=== PATIENT | female | born 1960 | race Two or more races ===

== ENCOUNTER 2022-03-16 09:57 | Day surgery (SDC) | payer MEDICARE ==
[2022-03-12 15:08] LABS: BASOPHILS % (AUTO) 0.5 % (0-1); EOSINOPHILS # (AUTO) 0.1 X10'3 (0-0.9); EOSINOPHILS % (AUTO) 2.4 % (0-6); LYMPHOCYTES # (AUTO) 2.3 X10'3 (1.1-4.8); LYMPHOCYTES % (AUTO) 40.5 % (21-51); MEAN CORPUSCULAR HEMOGLOBIN 30.9 PG (27.0-31.0); MEAN CORPUSCULAR HGB CONC 33.4 g/dL (33.0-36.5); MEAN CORPUSCULAR VOLUME 92.4 FL (78-98); MEAN PLATELET VOLUME 7.4 FL (7.4-10.4); MONOCYTES # (AUTO) 0.5 X10'3 (0-0.9); MONOCYTES % (AUTO) 8.9 % (2-12); NEUTROPHILS # (AUTO) 2.7 X10'3 (1.8-7.7); NEUTROPHILS % (AUTO) 47.7 % (42-75); PRE OP HEMATOCRIT 39.4 % (35.0-45.0); PRE OP HEMOGLOBIN 13.2 g/dL (12.0-16.0); PRE OP PLATELET COUNT 274 X10'3 (140-440); RED BLOOD COUNT 4.26 X10'6 (4.20-5.60); RED CELL DISTRIBUTION WIDTH 13.3 % (11.5-14.5)
[2022-03-12 15:49] LABS: ALBUMIN 3.8 G/DL (3.4-5.0); ALBUMIN/GLOBULIN RATIO 1.2 (1.1-1.5); ALKALINE PHOSPHATASE 64 IU/L (46-116); BLOOD UREA NITROGEN 12 MG/DL (7-18); CALCIUM 8.7 MG/DL (8.5-10.1); PRE OP ALT 19 U/L (30-65); PRE OP AST 23 U/L (10-37); PRE OP BILIRUB, TOTAL 0.2 MG/DL (0.0-1.0); PRE OP GLUCOSE 77 MG/DL (70-104); TOTAL CARBON DIOXIDE 29.9 MMOL/L (24-32); TOTAL PROTEIN 7.1 G/DL (6.4-8.2); eGFR > 90 ML/MIN
[2022-03-12 16:14] LABS: CHLORIDE 102 MMOL/L (99-107); PRE OP ANION GAP 6 (8-16); PRE OP POTASSIUM 3.5 MMOL/L (3.4-5.1); PRE OP SODIUM 138 MMOL/L (135-145)
[2022-03-16] VITALS (13 sets, daily range): BP systolic 138–175; BP diastolic 72–100
[~2022-03-16] VITALS: Ht 162.6 cm; Wt 52.2 kg
[~2022-03-16 09:57] MED LIST: ATOR40TA PO; CITA20TA PO; EMPA1TAB9 PO; HYDR-3973 PO; INDOCYANINE GREEN 25 MG/10 ML VIAL IV ONE; OLME5TAB29 PO; albuterol 2.5 MG/3 ML nebule NEB ONE; ceFAZolin inj. 2,000 MG in dextrose 5%-water 100 ML IV ONE; famotidine 20mg tablet PO ONE; ringers solution, lacted 1,000 ML IV SCH
--- NOTE | 2022-03-16 10:15 | NUR ---
PREPARED PT FOR SURGERY, DAUGHTER MANFRED AT BEDSIDE, PT INTERVIEWED IN [place], MANFRED AVAILABLE TO TRANSLATE IF NEEDED. SHE WAS NOT NEEDED. 20 G IV STARTED IN LEFT HAND WITHOUT DIFFICULTY. IC GREEN GIVEN SLOW IV PUSH, NO SIGNS OF REACTION. PT INSTRUCTED ON USE OF INCENTIVE SPIROMETRY. PT AND FAMILY VERBALIZED UNDERSTANDING OF HOW TO USE THE MACHINE. ABDOMEN WIPED DOWN BY [facility]. ANESTHESIA AND SURGEON AT BEDSIDE FOR PRESURGERY INTERVIEWS
[2022-03-16] MEDS ORDERED: LIDOcaine 1% 30ml preserv. free vial ONE (12:07)
[2022-03-16] MEDS ORDERED: BUPIVAcaine 0.5% inj/PF 30 ML ONE (12:07)
[2022-03-16] MEDS ORDERED: ondansetron/PF 4mg/2ml inj ONE (12:24)
[2022-03-16] MEDS ORDERED: sevoflurane 250ml liquid IH ONE (12:24)
[2022-03-16] MEDS ORDERED: fentaNYL/PF 50MCG/1 ML 2ML syringe ONE (12:30)
[2022-03-16] MEDS ORDERED: midazolam 1 mg/ML 2ml injection ONE (12:34)
[2022-03-16] MEDS ORDERED: dexamethasone sod phosphate 4mg/ml inj. ONE (12:42)
[2022-03-16] MEDS ORDERED: propofol inj 20 ML IV ONE (12:42)
[2022-03-16] MEDS ORDERED: rocuronium 10mg/ml inj IV ONE (12:42)
[2022-03-16] MEDS ORDERED: LIDOcaine 2% (20mg/ml) 5ml vial ONE (12:42)
[2022-03-16] MEDS ORDERED: ringers solution, lacted 1,000 ML IV SCH (12:45)
[2022-03-16] MEDS ORDERED: ondansetron/PF 4mg/2ml inj IV PRN (12:45)
[2022-03-16] MEDS ORDERED: morphine 2 MG/ML inj. syringe IV PRN (12:45)
[2022-03-16] MEDS ORDERED: morphine 4 MG/ML inj SYRINge IV PRN (12:45)
[2022-03-16] MEDS ORDERED: proCHLORperazine 10 MG/2 ml inj IV PRN (12:45)
[2022-03-16] MEDS ORDERED: meperidine/PF 25mg/ml syringe IV PRN ×3 (12:45)
[2022-03-16] MEDS ORDERED: BUPIVAcaine 0.5% inj/PF 30 ml vial IJ ONE (12:51)
[2022-03-16] MEDS ORDERED: acetaminophen 1,000mg/100ml IV 100 ML IV ONE (13:27)
[2022-03-16] MEDS ORDERED: sugammadex 200mg/2ml injection IV ONE (13:28)
[2022-03-16] MEDS ORDERED: glycopyrrolate 0.2mg/ml inj ONE (13:28)
[2022-03-16] MEDS ORDERED: neostigmine methylsulfate 1 MG/ML 10ml vial ONE (13:28)
--- NOTE | 2022-03-16 13:29 | NUR ---
Received from OR via , accompanied by Anesthesiologist AND OR NURSE and report given by Anesthesiolgist. PT IS QUITE DROWSY WITH ORAL AIRWAY IN PLACE; ABLE TO RESPOND TO VERBAL COMMANDS. DENIES PAIN OR DISCOMFORT. 4 LAP SITES WITH BANDAIDS; CDI. VSS Addendum: 03/16/22 at 1600 by Aparna Lozano RN Amended: Links added.
[2022-03-16] MEDS ORDERED: oxyCODONE/APAP 5-325mg tablet PO PRN (14:15)
--- NOTE | 2022-03-16 15:39 | NUR ---
I HAVE REVIEWED D/C INSTRUCTIONS WITH PATIENT AND THEY HAVE VERBALIZED UNDERSTANDING OF INSTRUCTIONS. PATIENT D/C HOME WITH ALL BELONGINGS AND FAMILY GAVE TRANSPORT Addendum: 03/16/22 at 1601 by Aparna Lozano RN Amended: Links added.
== END 2022-03-16 15:39 | disposition home or self-care (01) ==
LOC: PAS 09:57
PROVIDERS: ATTEND Surgery
DX: K80.10 Calculus of gallbladder with chronic cholecystitis without obstruction (principal); J44.9 Chronic obstructive pulmonary disease, unspecified; F32.9 Major depressive disorder, single episode, unspecified; F41.9 Anxiety disorder, unspecified; E11.9 Type 2 diabetes mellitus without complications; E78.5 Hyperlipidemia, unspecified; Z79.899 Other long term (current) drug therapy; Z98.890 Other specified postprocedural states; Z82.3 Family history of stroke; Z82.49 Family history of ischemic heart disease and other diseases of the circulatory system; Z83.3 Family history of diabetes mellitus; Z82.61 Family history of arthritis
CPT/HCPCS: 36415; 47563; 80053; 82948; 85025; 93005; J0131; J0690; J1100; J2175; J2250; J2405; J2704; J2710; J3010; J3490; J7030; J7060; J7120; S0020; Z7506; Z7508; Z7512; A4215; A4618; A7000